=== PATIENT | male | born 1990 | race African-American/Black ===

== ENCOUNTER → 2018-04-21 | Outpatient (REF) | payer OTHER | LOC: M SFHCLERA 13:01 | PROVIDERS: ATTEND Physician Assistant | DX: J02.9 Acute pharyngitis, unspecified (principal) ==

== ENCOUNTER → 2018-04-21 | Outpatient (CLI) | payer OTHER ==
--- NOTE | 2018-04-21 15:02 | REP ---
CHEST X-RAY PA AND LATERAL: 04/21/2018. CLINICAL HISTORY: Chest wall pain. FINDINGS: There are no prior studies. The two views show the lungs well inflated and without infiltrate, effusion, atelectasis, or mass. No lateral pleural thickening, effusion, or pneumothorax. The heart, mediastinal and hilar contours are normal. Bony thorax shows no compression deformity. Visualized ribs, scapulae, and shoulders are grossly unremarkable. No free air under the diaphragm. IMPRESSION: 1. No acute cardiopulmonary change. Electronically Signed by Heri Truong MD 04/21/2018 09:56 P
== END ==
LOC: M LRY 13:12
PROVIDERS: ATTEND Physician Assistant
DX: J10.1 Influenza due to other identified influenza virus with other respiratory manifestations (principal); R50.9 Fever, unspecified; R07.89 Other chest pain
CPT/HCPCS: 71046; 87804; 87880; G0463

== ENCOUNTER 2018-11-16 22:12 | Emergency (ER) | payer OTHER ==
[~2018-11-16] VITALS: Ht 170.2 cm; Wt 88.6 kg
[2018-11-17] MEDS ORDERED: KETOROLAC 60 MG/2 ML VIAL (J1885) IM ONE
[2018-11-17] MEDS ORDERED: LACT10SO29 PO (00:54)
[2018-11-17 01:00] VITALS: BP 129/76
[2018-11-17] MEDS ORDERED: LACTULOSE 20 GM/30 ML SYRUP UD PO ONE (01:00)
--- NOTE | 2018-11-17 08:01 | REP ---
Lumbar spine five views: There are no comparisons. Vertebral body heights, interspacing alignment are normal. The pedicles and facets are unremarkable. The sacroiliac articulations are unremarkable. There is no spondylolysis or spondylolisthesis. Impression: Negative lumbar spine. Electronically Signed by Marvel Cabrera MD 11/17/2018 07:54 A
== END 2018-11-17 01:01 | disposition home or self-care (01) ==
LOC: M ED 22:12
DX: M54.5 Low back pain (principal); K59.00 Constipation, unspecified; Z88.0 Allergy status to penicillin
CPT/HCPCS: 72110; 96372; 99283; J1885